=== PATIENT | male | born 2000 | race Caucasian/White ===

== ENCOUNTER 2019-08-15 19:03 | Emergency (ER) | payer OTHER, SELFPAY ==
[2019-08-15 19:30] VITALS: BP 136/96; PULSE 60; RESP 16; TEMP 36.5; O2SAT 100; BMI 19.0
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
[2019-08-15] MEDS: ibuprofen 600 mg Tablet PO (19:53)
[2019-08-15] MEDS: silver sulfadiazine cream 1% 50 gm 1 APPLIC TOPICAL (19:53)
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
[2019-08-15 20:46] VITALS: BP 133/87; PULSE 67; RESP 18; TEMP 36.9; O2SAT 100
== END 2019-08-15 20:34 | disposition home or self-care (01) ==
PROVIDERS: Emergency Provider Emergency Medicine; Family Provider Pediatrics Adolescent Medicine; PCP Pediatrics Adolescent Medicine
DX: T20.00XA Burn of unspecified degree of head, face, and neck, unspecified site, initial encounter (principal); T22.00XA Burn of unspecified degree of shoulder and upper limb, except wrist and hand, unspecified site, initial encounter; T21.01XA Burn of unspecified degree of chest wall, initial encounter; X08.8XXA Exposure to other specified smoke, fire and flames, initial encounter; Y93.89 Activity, other specified; Y92.096 Garden or yard of other non-institutional residence as the place of occurrence of the external cause
CPT/HCPCS: 99281; 99283